=== PATIENT | female | born 1990 | race African-American/Black ===

== ENCOUNTER 2018-09-06 19:33 | Emergency (ER) | payer BC ==
[~2018-09-06] VITALS: Ht 167.6 cm; Wt 59.9 kg
[~2018-09-06 19:33] MED LIST: ASPIRIN EC325 M1 PO; PRODAXA PO; [UNRECOGNIZED DRUG - OTHER]
[2018-09-06] MEDS ORDERED: NORFLEX100 MG PO (20:03)
[2018-09-06 20:21] VITALS: BP 104/65
== END 2018-09-06 20:25 | disposition home or self-care (01) ==
LOC: ER 19:33
DX: S46.812A Strain of other muscles, fascia and tendons at shoulder and upper arm level, left arm, initial encounter (principal); Z86.73 Personal history of transient ischemic attack (TIA), and cerebral infarction without residual deficits; V89.2XXA Person injured in unspecified motor-vehicle accident, traffic, initial encounter; Y92.89 Other specified places as the place of occurrence of the external cause; Y93.89 Activity, other specified; Y99.8 Other external cause status